=== PATIENT | male | born 1995 | race Native Hawaiian/Other Pacific Islander ===

== ENCOUNTER 2021-04-30 22:33 | Emergency (ER) | payer OTHER ==
[~2021-04-30] VITALS: Ht 177.8 cm; Wt 71.2 kg
[2021-04-30 23:37] VITALS: BP 121/86; TEMP 98.4
== END 2021-04-30 23:37 | disposition home or self-care (01) ==
LOC: ED 22:33
PROC: 2W3CX1Z Immobilization of Right Lower Arm using Splint (ICD-10-PCS; principal; 2021-04-30)
DX: S62.396A Other fracture of fifth metacarpal bone, right hand, initial encounter for closed fracture (principal); S60.511A Abrasion of right hand, initial encounter; W22.09XA Striking against other stationary object, initial encounter; Y92.098 Other place in other non-institutional residence as the place of occurrence of the external cause
CPT/HCPCS: 96372; 99283; J0690; J1885

== ENCOUNTER 2021-06-13 13:45 | Outpatient (CLI) | payer OTHER | END 2021-06-13 19:03 | disposition home or self-care (01) | LOC: RAD 13:45 | PROVIDERS: ATTEND Nurse Practitioner Family | DX: R06.00 Dyspnea, unspecified (principal) ==